=== PATIENT | female | born 2000 | race Caucasian/White ===

== ENCOUNTER 2018-05-23 06:14 | Emergency (ER) | payer OTHER ==
[~2018-05-23] VITALS: Ht 157.5 cm; Wt 73.3 kg
[2018-05-23 06:19] VITALS: Ht 157.5 cm; Wt 73.3 kg
[2018-05-23 07:50] VITALS: BP 105/48
== END 2018-05-23 07:50 | disposition home or self-care (01) ==
LOC: ED 06:14
DX: K52.9 Noninfective gastroenteritis and colitis, unspecified (principal)
CPT/HCPCS: J1885; J2405; J7030